=== PATIENT | female | born 1950 | race Caucasian/White ===

== ENCOUNTER → 2016-12-14 | Day surgery (SDC) | payer OTHER ==
[~2016-12-14] VITALS: Ht 157.5 cm; Wt 70.2 kg
[~2016-12-14] MED LIST: ACETAMINOPHEN 500 MG CPLT PO PRN; ADVA500A INH; BALANCED SALT SOLN OPHT IRRIG 15 ML BTL ONE; CALC1TAB87 PO; CHLORHEXIDINE GLUCONATE 2 % 1 PACK (2 CLOTHS) TOPICAL PRN; DEXAMETHASONE SOD PHOS 4 MG/ML VIAL ONE; DEXTROSE 50% IN WATER 50 ML SYRINGE ONE; DO NOT ADM ANY ANTICOAGULANT DRUGS PRN; EPINEPHrine HCL (1:1000) 1 MG/ML VIAL ONE; ESMOLOL HCL 100 MG/10 ML VIAL IV ONE; FAMOTIDINE 20 MG/2 ML VIAL ONE; INSULIN HUMAN REGULAR 1,000 UNITS/10 ML VIAL SQ PRN; LACTATED RINGER'S 1000 ML IV PRN; LIDOCAINE HCL 1% PF 5 ML AMPULE OTHER ONE; METF1000 PO; METOPROLOL TARTRATE 25 MG TAB PO PRN; ONDANSETRON HCL 4 MG/2 ML VIAL IV PUSH ONE; ONDANSETRON HCL 4 MG/2 ML VIAL IV PUSH PRN; POVIDONE IODINE 5% (ANTISEPSIS KIT) 4 APPLICATIONS EACH NARE PRN; PROPOFOL 200 MG/20 ML AMP IV ONE; SODIUM CHLORID 0.9% 500 ML IV PRN; STERILE WATER FOR INJECTION 20 ML VIAL ONE; TOBRAMYCIN/DEXAMETHASONE OPTH OINT 3.5 GM TUBE ONE; TRIAMCINOLONE ACETONIDE/PF 40 MG/ML OPTH VIAL ONE; VITA1000 PO; ceFAZolin INJ 1,000 MG VIAL ONE; oxyCODONE/ACETAMINOPHEN 5 MG/325 MG TAB PO PRN
[2016-12-14 09:06] LABS: AUTOMATED NEUTROPHIL # 6.4 TH/MM3 (1.8-7.7); BASOPHIL # 0.1 TH/MM3 (0-0.2); BASOPHIL % 0.9 % (0.0-2.0); EOSINOPHIL # 0.1 TH/MM3 (0-0.4); EOSINOPHIL % 1.5 % (0.0-4.0); HEMATOCRIT 40.7 % (35.0-46.0); HEMO FLAGS DIFF FINAL; LYMPH % 19.4 % (9.0-44.0); LYMPHOCYTE # 1.8 TH/MM3 (1.0-4.8); MEAN CELL VOLUME 93.8 FL (80.0-100.0); MEAN CORPUSCULAR HEMOGLOBIN 31.8 PG (27.0-34.0); MEAN CORPUSCULAR HGB CONC 33.9 % (32.0-36.0); MONO % 9.9 % (0.0-8.0); NEUT % 68.3 % (16.0-70.0); PLATELET COUNT 230 TH/MM3 (150-450); RED BLOOD COUNT 4.34 MIL/MM3 (4.00-5.30); RED CELL DISTRIBUTION WIDTH 12.9 % (11.6-17.2); WHITE BLOOD COUNT 9.4 TH/MM3 (4.0-11.0)
[2016-12-14] MEDS: TROPICAMIDE 1% OPHT SOLN 15 ML BTL RIGHT EYE SCH ×3 (09:45→10:15)
[2016-12-14] MEDS: PHENYLEPHRINE HCL 2.5% OPTH SOLN 2 ML BTL RIGHT EYE SCH ×3 (09:45→10:15)
--- NOTE | 2016-12-14 12:12 | EKG ---
Date Performed: 12/14/2016 Time Performed: 08:29:21 PTAGE: 66 years EKG: Sinus rhythm WITH SHORT OR INTERVAL LOW QRS VOLTAGE IN PRECORDIAL LEADS BORDERLINE ECG NO PREVIOUS TRACING DOCTOR: Linsey Arriaza Interpretating Date/Time 12/14/2016 12:09:56
--- NOTE | 2016-12-14 14:01 | MP ---
cc: ADEN GARZA M.D. DATE OF SURGERY: 12/14/2016 PREOPERATIVE DIAGNOSIS Rhegmatogenous retinal detachment involving macula OD. POSTOPERATIVE DIAGNOSIS Rhegmatogenous retinal detachment involving macula OD. PROCEDURE Trans pars plana vitrectomy with endolaser photocoagulation and gas fluid exchange, right eye. SURGEON Dr. Aden Garza. ANESTHESIA General laryngeal mask anesthesia. INDICATION Ms. Parker is a 66-year-old woman who came in complaining of decreased vision in the right eye and a shadow over her vision for which she reported to the emergency department on 12/10/2016. She was seen in the office 12/11/2016 and a macula off retinal detachment was found with the retinal break at about 9:30 to 10 o'clock. An air bubble was performed in the office and she was asked to position for 48 hours with her head tilted to the left. When she returned she still had fluid, therefore, the decision was made to bring her to surgery. The risks and benefits of vitrectomy were discussed with the patient as well as the possible formation of cataract. She wished to proceed. No guarantee was made as to visual outcome. PROCEDURE She was brought to [facility] operating room one and placed on the operating table. Appropriate anesthesia monitoring devices were applied and she was placed under general anesthesia using a laryngeal mask. The right eye was identified as the operative site and then prepped and draped in the usual sterile fashion. A lid speculum was placed. Using the Juvencio 23-gauge vitrectomy system the trocar cannulas were placed 4 mm posterior to the limbus after first displacing the conjunctiva. First one was placed at approximately 9 o'clock and verified to be in the posterior chamber. An infusion cannula was affixed to it and was turned on. Two additional trocar cannulas were placed at 10 and 2 o'clock. A small amount of Kenalog was injected into the vitreous cavity through the port. The eye was then entered with the Endo eliminator light pipe and vitrectomy cutter and a core vitrectomy was carried out using the flat contact lens. This was exchanged for the BIOM wide angle viewing system in the more peripheral retina was removed. The posterior retina was stabilized with Perfluoron liquid, so the more peripheral vitrectomy could be done safely. The fluid extended from approximately 8 o'clock up and around to 12 o'clock. Once the vitrectomy had been completed laser photo coagulation was placed around the periphery and around an area of lattice degeneration at about 6:30 o'clock. The retinal break had the flap tear amputated during the vitrectomy and that site was also treated as well as the more peripheral retina almost 360 degrees. Unfortunately, the cannula with the infusion was inadvertently removed prematurely from the eye and the eye did experience some decreased pressure. The infusion cannula was affixed to the superotemporal port to reinflate the eye and then another infusion cannula inserted just above the previous one. There was a small amount of bleeding with this as well as a small nasal choroidal hemorrhage. The Perfluoron was removed and replaced with air and the air was replaced with 15% mixture of C3F8 gas. The laser total using both the endolaser with a power of 300 and 0.1-second exposure as well as the indirect laser with a power of 0.15 exposure yielded a total of 1355 laser spots. The cannulas were then removed one by one with tamponade of the site with a cotton swab. Removal of the superonasal cannula allowed egress of some of the choroidal hemorrhagic fluid. When said and done the eye was left with good pressure and no visible air leaks. Atropine was aborted due to the patient's ALLERGY TO SPIRIVA and possible cross allergic reaction. She was given 0.1 cc of Kenalog subconjunctival superiorly and then Decadron 2 mg in half cc and Ancef 125 mg in 1/2 cc at separate subconjunctival sites. Diathermy of the conjunctiva wounds was performed. The lid speculum was removed. The patient was undraped. TobraDex ointment was placed on the cornea and the right eye was patched and shielded. The patient had the laryngeal mask removed in the room and was returned to recovery in good condition laying on her left side. When awake and alert she will be asked to assume face down positioning. MD TRISTIAN Rudolph/GERMÁN /12:54 PM /1:30 PM
[2016-12-14 14:15] VITALS: BP 112/59; PULSE 85; RESP 16; TEMP 99; O2SAT 98
== END | disposition home or self-care (01) ==
LOC: HSDC 08:03
PROVIDERS: ATTEND Ophthalmology
DX: H33.001 Unspecified retinal detachment with retinal break, right eye (principal); J44.9 Chronic obstructive pulmonary disease, unspecified; R94.31 Abnormal electrocardiogram [ECG] [EKG]
CPT/HCPCS: 00145; 67113; 85025; 93005; J0171; J0690; J1100; J3300; J2405; J3010

== ENCOUNTER → 2017-01-24 | Day surgery (SDC) | payer OTHER ==
[~2017-01-24] VITALS: Ht 157.5 cm; Wt 69.4 kg
[~2017-01-24] MED LIST changes: -ACETAMINOPHEN 500 MG CPLT PO PRN; +BUPIVACAINE HCL PF 0.75% 10 ML VIAL ONE; +DEXAMETHASONE SOD PHOS 4 MG/ML VIAL IV ONE; -DEXTROSE 50% IN WATER 50 ML SYRINGE ONE; -ESMOLOL HCL 100 MG/10 ML VIAL IV ONE; -FAMOTIDINE 20 MG/2 ML VIAL ONE; -LIDOCAINE HCL 1% PF 5 ML AMPULE OTHER ONE; +LIDOCAINE HCL 1% PF 5 ML SYRINGE OTHER ONE; +LISI2.5T3 PO; +ONDANSETRON HCL 4 MG/2 ML VIAL IV ONE; -ONDANSETRON HCL 4 MG/2 ML VIAL IV PUSH ONE; -ONDANSETRON HCL 4 MG/2 ML VIAL IV PUSH PRN; +TOBRAMYCIN 0.3%/DEXAMETHASONE 0.1% OPHT SUSP 5 ML BTL ONE; -oxyCODONE/ACETAMINOPHEN 5 MG/325 MG TAB PO PRN
[2017-01-24] MEDS: CYCLOPENTOLATE HCL 1% OPHT SOLN 2 ML BTL RIGHT EYE SCH ×2 (12:37→12:52)
[2017-01-24] MEDS: PHENYLEPHRINE HCL 2.5% OPTH SOLN 2 ML BTL RIGHT EYE SCH ×2 (12:43→12:53)
[2017-01-24] MEDS: TROPICAMIDE 1% OPHT SOLN 15 ML BTL RIGHT EYE SCH ×2 (12:47→12:54)
[2017-01-24 13:00] LABS: AUTOMATED NEUTROPHIL # 5.6 TH/MM3 (1.8-7.7); BASOPHIL # 0.1 TH/MM3 (0-0.2); BASOPHIL % 0.6 % (0.0-2.0); EOSINOPHIL # 0.1 TH/MM3 (0-0.4); EOSINOPHIL % 1.4 % (0.0-4.0); HEMATOCRIT 37.7 % (35.0-46.0); HEMO FLAGS DIFF FINAL; LYMPHOCYTE # 2.3 TH/MM3 (1.0-4.8); MEAN CELL VOLUME 93.1 FL (80.0-100.0); MEAN CORPUSCULAR HEMOGLOBIN 31.8 PG (27.0-34.0); MEAN CORPUSCULAR HGB CONC 34.1 % (32.0-36.0); MONO % 11.3 % (0.0-8.0); NEUT % 61.7 % (16.0-70.0); PLATELET COUNT 226 TH/MM3 (150-450); RED BLOOD COUNT 4.05 MIL/MM3 (4.00-5.30); RED CELL DISTRIBUTION WIDTH 12.9 % (11.6-17.2); WHITE BLOOD COUNT 9.1 TH/MM3 (4.0-11.0)
[2017-01-24 17:00] VITALS: BP 132/65; PULSE 91; RESP 18; TEMP 97.4; O2SAT 98
--- NOTE | 2017-01-25 01:54 | MP ---
cc: ADEN GARZA M.D. DATE OF SURGERY 01/24/2017 PREOPERATIVE DIAGNOSIS Retained lens material status post cataract extraction, recurrent retinal detachment, right eye. POSTOPERATIVE DIAGNOSIS Retained lens material status post cataract extraction, recurrent retinal detachment, right eye. PROCEDURE Trans pars plana vitrectomy with lensectomy, endolaser photocoagulation, gas fluid exchange, scleral buckle procedure, right eye. SURGEON Dr. Aden Garza. ANESTHESIA General laryngeal mask anesthesia. HISTORY Ms. Parker is a 66-year-old woman who presented for vitrectomy and laser with gas fluid exchange after being discovered with a retinal detachment. After her initial surgery her cataract worsened significantly to the point where I was unable to see the details of the posterior pole. The B scan suggested there may be a __ redetachment. She was sent for cataract surgery. However, during the cataract surgery the posterior capsule was breeched and the lens fell into the posterior pole. Initially her cornea was so edematous it was not safe to go in and performed the repeat vitrectomy and lensectomy, so a period of observation began with topical treatment. She finally cleared to the point on 01/23/2017 that I thought it would be reasonable to go ahead and get the lens fragments out, repair any recurrent detachment and so this is what she was consented for. The risks and benefits of a scleral buckle as well as vitrectomy and lensectomy were discussed with the patient and she wished to proceed. DETAILS OF PROCEDURE She was brought to [facility] operating room one and placed on the operating table. Appropriate anesthesia monitoring devices were applied and she was placed under general anesthesia using a laryngeal mask. The right eye was identified as the operative site and then prepped and draped in the usual sterile fashion. A lid speculum was placed. At this point an appropriate time-out was called with the surgical team agreeing to the planned surgical procedure and surgical site. A limbal peritomy was done 360 degrees using the conjunctival forceps and Lucinaa scissors. Relaxing incisions were made at 4 and 9 o'clock. All four quadrants were opened with blunt dissection using the Luciana scissors. The four recti muscles were hooked on muscle hooks and secured on 4-0 black silk ties, 5-0 Dacron was placed midway between the recti muscles about 13 mm posterior to the limbus in all four quadrants. A 41 band was then weaved underneath the muscles through the mattress sutures and secured in the superonasal quadrant with a 70 sleeve. Next, a three port vitrectomy was carried out, cleaning out the vitreous and it was noted that there was a detachment from about 1 o'clock going down the nasal retina to about 6 o'clock. The macula was still attached. Using both the flat contact lens and the biome wide angle viewing system the superotemporal sclerotomy was opened with the MVR blade to allow the insertion of the fragment ___ and the lens remnants were removed. Laser was placed nasally around an area suspicious for a break and then an air-fluid exchange was performed. The air was then exchanged out for a 15% mixture of C3F8 gas while the enlarged sclerotomy was closed with interrupted 7-0 Vicryl. The other two sclerotomies superonasal and temporally were also closed with interrupted 7-0 Vicryl leaving the eye airtight. The buckle was then tightened and sutured down at all four quadrants with the preplaced 5-0 polyester sutures. The ends of the buckle were trimmed. A good indentation effect was found. The orbit was irrigated with a mixture of 0.75% Marcaine without epinephrine and tobramycin. The conjunctiva was brought back up into place and closed along the radial relaxing incisions. The recti muscle ties were removed out. The patient may have a coallergy to atropine so that was not used topically. Once she was undraped TobraDex ointment was placed on the cornea and the right eye was patched and shielded. She had the laryngeal mask removed in the room and was returned to recovery in good condition laying on her left side. When awake and alert she will be asked to assume face down positioning and she may require additional laser on the nasal buckle in the postoperative period. MD TRISTIAN Rudolph/ERICK /4:30 PM /1:44 AM
--- NOTE | 2017-01-26 08:40 | EKG ---
Date Performed: 01/24/2017 Time Performed: 11:30:48 PTAGE: 66 years EKG: Sinus rhythm NORMAL ECG PREVIOUS TRACING : 12/14/2016 08.29 DOCTOR: Pavel Mae Interpretating Date/Time 01/26/2017 08:38:50
== END | disposition home or self-care (01) ==
LOC: HSDC 10:36
PROVIDERS: ATTEND Ophthalmology
DX: H59.021 Cataract (lens) fragments in eye following cataract surgery, right eye (principal); H33.8 Other retinal detachments; H40.9 Unspecified glaucoma; J45.909 Unspecified asthma, uncomplicated; E11.9 Type 2 diabetes mellitus without complications; Z01.818 Encounter for other preprocedural examination; Z01.810 Encounter for preprocedural cardiovascular examination
CPT/HCPCS: 00145; 67108; 85025; 93005; J0171; J0690; J1100; J7120; J2405; J3010; J3300

== ENCOUNTER → 2017-03-02 | Day surgery (SDC) | payer OTHER ==
[~2017-03-02] VITALS: Ht 157.5 cm; Wt 70.6 kg
[~2017-03-02] MED LIST changes: +ACETAMINOPHEN 1000 MG/100 ML 100 ML IV ONE; +ACETAMINOPHEN 500 MG CPLT PO PRN; +ACETYLCHOLINE CHL OPHT SOLN 1:100 2 ML VIAL ONE; +APREPITANT 40 MG CAP ONE; -BUPIVACAINE HCL PF 0.75% 10 ML VIAL ONE; -INSULIN HUMAN REGULAR 1,000 UNITS/10 ML VIAL SQ PRN; +LACTATED RINGER'S 1000 ML INJ 1,000 ML IV ONE; +ONDANSETRON HCL 4 MG/2 ML VIAL IM PRN; +ONDANSETRON HCL 4 MG/2 ML VIAL IV PRN; -TOBRAMYCIN 0.3%/DEXAMETHASONE 0.1% OPHT SUSP 5 ML BTL ONE
[2017-03-02] MEDS: ATROPINE SULFATE 1% OPHT SOLN 5 ML BTL RIGHT EYE SCH ×2 (07:00→07:15)
[2017-03-02] MEDS: CYCLOPENTOLATE HCL 1% OPHT SOLN 2 ML BTL RIGHT EYE SCH ×3 (07:00→07:30)
[2017-03-02] MEDS: PHENYLEPHRINE HCL 2.5% OPTH SOLN 2 ML BTL RIGHT EYE SCH ×4 (07:30→08:15)
[2017-03-02] MEDS: TROPICAMIDE 1% OPHT SOLN 15 ML BTL RIGHT EYE SCH ×4 (07:30→08:15)
[2017-03-02 07:31] LABS: AUTOMATED NEUTROPHIL # 4.2 TH/MM3 (1.8-7.7); BASOPHIL % 0.6 % (0.0-2.0); EOSINOPHIL # 0.1 TH/MM3 (0-0.4); EOSINOPHIL % 1.8 % (0.0-4.0); HEMATOCRIT 38.3 % (35.0-46.0); HEMOGLOBIN 12.7 GM/DL (11.6-15.3); LYMPH % 25.5 % (9.0-44.0); LYMPHOCYTE # 1.8 TH/MM3 (1.0-4.8); MEAN CELL VOLUME 94.6 FL (80.0-100.0); MEAN CORPUSCULAR HEMOGLOBIN 31.5 PG (27.0-34.0); MEAN CORPUSCULAR HGB CONC 33.3 % (32.0-36.0); MEAN PLATELET VOLUME 8.8 FL (7.0-11.0); MONO % 11.8 % (0.0-8.0); MONOCYTE # 0.8 TH/MM3 (0-0.9); NEUT % 60.3 % (16.0-70.0); PLATELET COUNT 231 TH/MM3 (150-450); RED BLOOD COUNT 4.05 MIL/MM3 (4.00-5.30); RED CELL DISTRIBUTION WIDTH 13.5 % (11.6-17.2)
[2017-03-02 12:14] VITALS: BP 121/65; PULSE 81; RESP 18; TEMP 98; O2SAT 95
--- NOTE | 2017-03-02 12:47 | MP ---
cc: ADEN GARZA M.D. 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 PROCEDURE Trans pars plana vitrectomy with membranectomy, endolaser panretinal photocoagulation, and installation of 1000 centistokes silicone oil right eye. SURGEON Dr. Aden Garza ANESTHESIA General laryngeal mask anesthesia INDICATIONS Ms. Parker is a 66-year-old woman with a complicated retinal history beginning with discovery of a retinal detachment in her right eye of unknown age. She underwent a vitrectomy and quickly developed a cataract. She was referred for cataract surgery and there was loss of the lenticular fragments into the posterior chamber during her cataract surgery. She had developed significant corneal edema after that procedure. Therefore, watchful waiting until the view returned was performed during which time she began to reoccur with her original retinal detachment this time with anterior PVR. It was recommended she undergo a repeat procedure of vitrectomy, laser and possible installation of 1000 centistokes silicone oil. She wished to proceed. The risks and benefits of surgery were discussed with the patient. No guarantee was made as to visual outcome. PROCEDURE NOTE She was brought to [facility] operating room one and placed on the operating table. Appropriate anesthesia monitoring devices were applied and she was placed under general anesthesia using a laryngeal mask. The right eye was identified as the operative site and prepped and draped in the usual sterile fashion. A lid speculum was placed. Using the Juvencio 23-gauge vitrectomy system, the trocar cannulas were placed first at the 8:30 o'clock position and verified to be in the posterior chamber. A lighted infusion cannula was affixed to it. Two additional trocar cannulas were placed at 10 and 2 o'clock in the usual fashion. The eye was entered with the Endo range feeder light pipe and vitrectomy cutter. There were two epicenters of PVR at 2 and 5-6 o'clock. Before approaching those, a Oziel membrane brush was used to explore the macular area for any membranes none were found there. Next, using both the vitrectomy cutter and a Malik's pick as well as end grasping forceps, the membranes and the residual vitreous base along the temporal periphery were dissected. Once I was satisfied with the dissection, Perfluoron was used to flatten the retina and endolaser photocoagulation was placed on the slope of the buckle and also on the anterior portion of the buckle for approximately 270 degrees. The temporal retina was attached on the buckle. The Perfluoron was then removed and exchanged for air and then the air was replaced with 1000 centistokes silicone oil. The number of laser shots around the periphery and on the slope of the buckle were 1619 with a power of 300 milliwatts and exposure of 0.15 seconds. The retina remained flat. Additional air was placed in the anterior chamber followed by some Miochol and an inferior iridectomy at 6 o'clock. Then the trocar cannulas were removed one by one with tamponade of the site with a cotton swab and diathermy to the overlying conjunctival wound. The infusion cannula incision was secured with a single 7-0 Vicryl suture. Subconjunctival injections of Ancef 125 mg in half cc and Decadron 2 mg in half ml were given at separate sites. The lid speculum was removed. The patient was undraped. TobraDex ointment was placed on the cornea and she was patched and shielded. She had the laryngeal mass removed in the room and was returned to recovery in a head elevated position. I spoke with the after the surgery and advised him to keep her in a head up position until it is time for bed and then to have her start face-down positioning. MD TRISTIAN Rudolph/SHAYAN /10:46 AM /12:10 PM
== END | disposition home or self-care (01) ==
LOC: HSDC 06:29
PROVIDERS: ATTEND Ophthalmology
DX: H33.41 Traction detachment of retina, right eye (principal); E11.9 Type 2 diabetes mellitus without complications; Z79.84 Long term (current) use of oral hypoglycemic drugs
CPT/HCPCS: 00145; 67108; 82948; 85025; C1814; J0131; J0171; J0690; J1100; J2405; J3010; J7120; J8501; J3300